=== PATIENT | male | born 1995 | race Caucasian/White ===

== ENCOUNTER 2019-03-29 22:29 | Emergency (ER) | payer MEDICAID ==
[2019-03-29 23:01] VITALS: BP 148/59; PULSE 90
[2019-03-30] MEDS ORDERED: Doxycycline 100 MG Cap PO ONE (00:19)
--- NOTE | 2019-03-30 00:24 | EDM.PDOC ---
ED HPI GENERAL MEDICAL PROBLEM - General Chief Complaint: Skin Complaint Stated Complaint: LUMP UNDER ARM Time Seen by Provider: 03/30/19 00:00 Source of Information: Reports: Patient History Limitations: Reports: No Limitations - History of Present Illness INITIAL COMMENTS - FREE TEXT/NARRATIVE: right axilla sore and swollen lump noticed this estuardo. Nno fever or chills no hx of skin infections - Related Data Allergies Allergy/AdvReac Type Severity Reaction Status Date / Time No Known Allergies Allergy Verified 03/29/19 23:01 Home Meds: Home Meds Lisinopril 10 mg PO DAILY 11/22/14 [History] Methylphenidate HCl [Concerta] 36 mg PO DAILY 11/13/18 [History] Past Medical History HEENT History: Reports: Impaired Vision Cardiovascular History: Reports: Hypertension Psychiatric History: Reports: ADHD Dermatologic History: Reports: Other (See Below) Other Dermatologic History: tattoos - Past Surgical History Other HEENT Surgeries/Procedures: Laser eye surgery on the ;left Social & Family History - Family History Family Medical History: Noncontributory - Tobacco Use Smoking Status *Q: Current Some Day Smoker Years of Tobacco use: 4 Packs/Tins Daily: 0.1 - Caffeine Use Caffeine Use: Reports: Soda, Tea - Recreational Drug Use Recreational Drug Use: No ED ROS GENERAL - Review of Systems Review Of Systems: Comprehensive ROS is negative, except as noted in HPI. ED EXAM, SKIN/RASH Exam: See Below Exam Limited By: No Limitations General Appearance: Alert, No Apparent Distress Eye Exam: Bilateral Eye: PERRL Ears: Normal External Exam Nose: Normal Inspection Throat/Mouth: Normal Inspection Head: Atraumatic, Normocephalic Neck: Normal Inspection Respiratory/Chest: No Respiratory Distress Cardiovascular: Normal Peripheral Pulses, Regular Rate, Rhythm GI/Abdominal: Soft Extremities: Redness ( right upper inner arm upper axilla) Skin: Warm, Dry, Intact, Normal Color, Other (2x2 cm firm nonfluctuant abscess formation,redness 4x7 axilla and inner upper arm) Course - Vital Signs Last Recorded V/S: Last Vital Signs Temp 98.6 F 03/29/19 22:59 Pulse 90 03/29/19 22:59 Resp 16 03/29/19 22:59 BP 148/59 H 03/29/19 22:59 Pulse Ox 97 03/29/19 22:59 Departure - Departure Time of Disposition: 00:20 Disposition: Home, Self-Care 01 Condition: Good Clinical Impression: Abscess - Discharge Information *PRESCRIPTION DRUG MONITORING PROGRAM REVIEWED*: No *COPY OF PRESCRIPTION DRUG MONITORING REPORT IN PATIENT YOLA: No Instructions: Skin Abscess, [id number] Additional Instructions: doxycycline 100mg one twice daily for 10 days alternate tylenol and ibuprofen every 4 hurs as needed for discomfort warm pack to axillary area - ( armpit) 15 minutes 3 times daily follow up if increased redness to inner upper arm and fever
== END 2019-03-30 00:28 | disposition home or self-care (01) ==
LOC: DL.ED 22:29
DX: L02.411 Cutaneous abscess of right axilla (principal); I10 Essential (primary) hypertension; F90.9 Attention-deficit hyperactivity disorder, unspecified type; F17.210 Nicotine dependence, cigarettes, uncomplicated; Z79.899 Other long term (current) drug therapy
CPT/HCPCS: 99282

== ENCOUNTER 2020-04-17 09:12 | Emergency (ER) | payer MEDICAID ==
[2020-04-17 09:37] VITALS: BP 147/82; PULSE 110
--- NOTE | 2020-04-17 09:50 | EDM.PDOC ---
ED HPI GENERAL MEDICAL PROBLEM - General Stated Complaint: NOSE SORE? STATED ABCES Time Seen by Provider: 04/17/20 09:40 Source of Information: Reports: Patient, RN, RN Notes Reviewed History Limitations: Reports: No Limitations - History of Present Illness INITIAL COMMENTS - FREE TEXT/NARRATIVE: Patient presents to the ED via personal vehicle with complaints of a sore under the right nare. The patient reports he was shaving his face this past 04/14/2020, and accidentally nicked himself with his razor. He notes swelling, pain, redness, and drainage started on , 04/15/2020, and has progressively worsened since that time. He reports purulent drainage from the sore and pain/swelling that extends into his upper lip and cheek. He denies fever, shaking chills, or palpitations. He states he has not experienced sores like this in the past. - Related Data Allergies Allergy/AdvReac Type Severity Reaction Status Date / Time No Known Allergies Allergy Verified 04/17/20 09:33 Home Meds: Home Meds Lisinopril 10 mg PO DAILY 11/22/14 [History] Methylphenidate HCl [Concerta] 36 mg PO DAILY 11/13/18 [History] Past Medical History HEENT History: Reports: Impaired Vision Cardiovascular History: Reports: Hypertension Respiratory History: Reports: None Gastrointestinal History: Reports: None Genitourinary History: Reports: None Musculoskeletal History: Reports: None Neurological History: Reports: None Psychiatric History: Reports: ADHD Endocrine/Metabolic History: Reports: None Hematologic History: Reports: None Immunologic History: Reports: None Oncologic (Cancer) History: Reports: None Dermatologic History: Reports: Other (See Below) Other Dermatologic History: tattoos - Infectious Disease History Infectious Disease History: Reports: None - Past Surgical History Head Surgeries/Procedures: Reports: None Other HEENT Surgeries/Procedures: Laser eye surgery on the ;left Social & Family History - Family History Family Medical History: No Pertinent Family History - Tobacco Use Tobacco Use Status *Q: Never Tobacco User Second Hand Smoke Exposure: No - Caffeine Use Caffeine Use: Reports: None - Recreational Drug Use Recreational Drug Use: No ED ROS GENERAL - Review of Systems Review Of Systems: Comprehensive ROS is negative, except as noted in HPI. ED EXAM, SKIN/RASH Exam: See Below Exam Limited By: No Limitations General Appearance: Alert, WD/WN, No Apparent Distress Eye Exam: Bilateral Eye: EOMI, Normal Inspection, PERRL (4mm) Nose: Nasal Tenderness, Nasal Swelling, Clear Rhinorrhea, Other (Dried blood in right nare; Sore under right nare) Throat/Mouth: Normal Voice, No Airway Compromise Head: Atraumatic, Normocephalic Neck: Normal Inspection, Supple, Non-Tender, Full Range of Motion. No: Lymphadenopathy (L), Lymphadenopathy (R) Respiratory/Chest: No Respiratory Distress, Lungs Clear, Normal Breath Sounds, No Accessory Muscle Use, Chest Non-Tender Cardiovascular: Normal Peripheral Pulses, Regular Rate, Rhythm, No Edema, No Gallop, No JVD, No Murmur, No Rub Psychiatric: Normal Affect, Normal Mood Skin: Normal Color, Increased Warmth, Wound/Incision (Draining sore under right nare; Purulent drainage). No: Ecchymosis, Erythema, Excoriations, Mottled, Pallor, Petechiae Location, Skin: Face Characteristics: Erythematous Associated features: Warmth, Tenderness, Swelling, Weeping Course - Vital Signs Last Recorded V/S: Last Vital Signs Temp 98.4 F 04/17/20 09:34 Pulse 110 H 04/17/20 09:34 Resp 16 04/17/20 09:34 BP 147/82 H 04/17/20 09:34 Pulse Ox 97 04/17/20 09:34 - Re-Assessments/Exams Free Text/Narrative Re-Assessment/Exam: 04/17/20 Sore under nare drained of purulent drainage by business writer, by hand. Given swelling, redness, and pain that extends to upper lip will treat with Bactroban 2% and Bactrim DS x7 days. Patient verbalized understanding and agreement with the plan of care. Departure - Departure Time of Disposition: 09:44 Disposition: Home, Self-Care 01 Condition: Good Clinical Impression: Nasal sore - Discharge Information *PRESCRIPTION DRUG MONITORING PROGRAM REVIEWED*: Not Applicable *COPY OF PRESCRIPTION DRUG MONITORING REPORT IN PATIENT YOLA: Not Applicable Instructions: Antibiotic Medicine, Adult Forms: ED Department Discharge Additional Instructions: Rx: Bactroban Rx: Bactrim 1.) Take all of your oral antibiotics until gone, even if your wound improves and you feel better. 2.) Change your facial razor often. 3.) Drink plenty of fluids to stay hydrated. Sepsis Event Note (ED) - Evaluation Sepsis Screening Result: No Definite Risk - Focused Exam Vital Signs: Vital Signs Temp Pulse Resp BP Pulse Ox 04/17/20 09:34 98.4 F 110 H 16 147/82 H 97
== END 2020-04-17 09:52 | disposition home or self-care (01) ==
LOC: DL.ED 09:12
DX: L98.9 Disorder of the skin and subcutaneous tissue, unspecified (principal); I10 Essential (primary) hypertension; F90.9 Attention-deficit hyperactivity disorder, unspecified type; Z79.899 Other long term (current) drug therapy
CPT/HCPCS: 99283